=== PATIENT | female | born 1995 | race Caucasian/White ===

== ENCOUNTER 2018-10-18 14:27 | Emergency (ER) | payer OTHER, SELFPAY ==
--- NOTE | 2018-10-18 14:29 | ED.FEVER ---
HPI - Fever <LAURA Rivas - Last Filed: 10/18/18 22:03> General Chief Complaint: Upper Respiratory Symptoms Stated Complaint: states sore throat, thinks fever Time Seen by Provider: 10/18/18 14:29 Source: patient Mode of arrival: ambulatory History of Present Illness HPI Narrative: 23-year-old female with history of asthma who is a nonsmoker here for complaint of having sore throat and nasal congestion for the past week. She states she has been around friends ankle workers at of had similar symptoms. She reports that the sore throat was worse yesterday. She believes she may have had a fever yesterday. She did not check her temperature. Positive p.o. intake. No nausea vomiting. She also reports that her albuterol inhaler has ran out. No other concerns or complaints. Related Data Previous Rx's Medication Instructions Recorded albuterol sulfate 2 puff INHALATION Q4-6H PRN #8 gram 10/18/18 Allergies Allergy/AdvReac Type Severity Reaction Status Date / Time azithromycin Allergy Verified 10/18/18 14:38 Review of Systems <LAURA Rivas - Last Filed: 10/18/18 22:03> Constitutional Reports chills, Reports fever(s), Denies lethargy and Denies weakness Eyes Denies change in vision, Denies eye discharge, Denies irritation and Denies loss of vision ENT Ears, Nose, Mouth, and Throat: Denies change in voice, Denies neck pain and Reports sore throat Cardiovascular Denies chest pain, Denies irregular heart rhythm, Denies lightheadedness, Denies palpitations, Denies dyspnea, Denies dyspnea on exertion and Denies orthopnea Respiratory Denies cough, Denies dyspnea, Denies dyspnea on exertion and Denies wheezing Gastrointestinal Gastrointestinal: Denies abdominal pain, Denies change in bowel habits, Denies diarrhea, Denies nausea and Denies vomiting Genitourinary Denies hematuria, Denies flank pain, Denies urinary incontinence and Denies urinary urgency Musculoskeletal Denies neck pain Integumentary/Breasts Denies pruritus, Denies erythema, Denies rash and Denies wounds Neurologic Denies confusion, Denies loss of vision and Denies weakness Psychiatric Denies anxiety, Denies confusion, Denies depression, Denies homicidal ideation and Denies suicidal ideation Endocrine Denies palpitations Hematologic/Lymphatic Denies easy bruising Allergic/Immunologic Denies wheezing Exam <LAURA Rivas - Last Filed: 10/18/18 22:03> Initial Vital Signs Initial Vital Signs: Vital Signs Temperature 98.1 F 10/18/18 14:32 Pulse Rate 96 H 10/18/18 14:32 Respiratory Rate 15 10/18/18 14:32 Blood Pressure 134/96 H 10/18/18 14:32 Pulse Oximetry 100 10/18/18 14:32 Const General: cooperative and well developed Nutritional Appearance: well nourished Orientation: alert, awake, oriented x3 and not confused HENIA Mouth: oral mucosae normal and moist mucous membranes Throat: posterior oropharynx abnormal (Mild erythema) Eyes Conjunctivae: conjunctivae normal Sclera: sclerae normal Pupils: PERRL EOM: EOM intact bilaterally Neck Neck: normal visual inspection, trachea midline, No lymphadenopathy, No midline deformity and No JVD Lymphatic: No lymphedema Chest Chest: normal inspection of the chest Resp Effort & Inspection: normal respiratory effort, able to speak in complete sentences, no respiratory distress and no use of accessory muscles Auscultation: clear to auscultation bilaterally, no rales, no rhonchi and no wheezes Cardio Rate: regular rate Rhythm: regular rhythm Heart Sounds: no click, no gallops, no murmurs and no rubs Skin General: no rashes or lesions noted, No jaundice and No petechiae Neuro General: alert, oriented x3, gait normal and no focal motor deficits Speech: speech normal <Marcia Baltazar DO - Last Filed: 10/22/18 18:59> Initial Vital Signs Initial Vital Signs: Vital Signs Temperature 98.1 F 10/18/18 14:32 Pulse Rate 96 H 10/18/18 14:32 Respiratory Rate 15 10/18/18 14:32 Blood Pressure 134/96 H 10/18/18 14:32 Pulse Oximetry 100 10/18/18 14:32 Course <LAURA Rivas - Last Filed: 10/18/18 22:03> Vital Signs - 8 hr 10/18/18 14:32 10/18/18 15:37 Temperature 98.1 F Pulse Rate 96 H 98 H Respiratory Rate 15 Blood Pressure 134/96 H Pulse Oximetry 100 100 <Marcia Baltazar DO - Last Filed: 10/22/18 18:59> Vital Signs - 8 hr 10/18/18 14:32 10/18/18 15:37 Temperature 98.1 F Pulse Rate 96 H 98 H Respiratory Rate 15 Blood Pressure 134/96 H Pulse Oximetry 100 100 MDM - Fever <LAURA Rivas - Last Filed: 10/18/18 22:03> Lab Data Point of Care Testing Rapid Strep A Negative MDM Narrative Medical decision making narrative: Rapid strep test was obtained was negative. Signs and symptoms presents as viral upper respiratory infection. Plenty of fluids. Saline irrigation nasal passages to help with congestion. May also use hot showers for congestion. [id number] Tylenol or Motrin as needed for any discomfort or fevers. Plenty of rest. Follow up with primary care provider. Prescription for albuterol inhaler is placed <Marcia Baltazar DO - Last Filed: 10/22/18 18:59> Lab Data Point of Care Testing Rapid Strep A Negative Discharge Plan Departure Patient Disposition: Home Clinical Impression: Upper respiratory infection Discharge Date/Time: 10/18/18 15:37 Interventions: ED Discharge Assessment Last Done: 10/18/18 15:37 Instructions: DI for Viral Upper Respiratory Infection -- Adult Activity Restrictions/Additional Instructions: Rapid strep test was obtained was negative. Signs and symptoms presents as viral upper respiratory infection. Plenty of fluids. Saline irrigation nasal passages to help with congestion. May also use hot showers for congestion. [id number] Tylenol or Motrin as needed for any discomfort or fevers. Plenty of rest. Follow up with primary care provider. Prescription for albuterol inhaler is placed Prescriptions: New albuterol sulfate 90 mcg/actuation HFA aerosol inhaler 2 puff INHALATION Q4-6H PRN (Reason: shortness of breath or wheezing) Qty: 8 RF: 0 Referrals: [facility] [Provider Group] <Marcia Baltazar DO - Last Filed: 10/22/18 18:59> Cosign ED Attending Cosezraature Attestation: I was immediately available in the department for consultation. Documentation has been reviewed. I agree with assessment and plan.
[2018-10-18 14:32] VITALS: BP 134/96; PULSE 96; RESP 15; TEMP 36.7; O2SAT 100; BMI 29.9
[2018-10-18 15:37] VITALS: PULSE 98; O2SAT 100
== END 2018-10-18 15:37 | disposition home or self-care (01) ==
PROVIDERS: Emergency Provider Nurse Practitioner Family
DX: J06.9 Acute upper respiratory infection, unspecified (principal)
CPT/HCPCS: 87880; 99282; 99283